=== PATIENT | female | born 1940 | race Caucasian/White ===

== ENCOUNTER 2020-10-15 06:09 | Inpatient (IN) | payer MEDICARE, OTHER ==
[~2020-10-15] VITALS: Ht 165.1 cm; Wt 70.4 kg
[2020-10-15] MEDS ORDERED: SODIUM CHLORIDE 0.9% 1,000ML IV SCH (06:30)
[2020-10-15] MEDS ORDERED: ONDANSETRON 2MG/ML, 2ML IV PRN ×2 (06:30→10:00)
[2020-10-15] MEDS ORDERED: CHOL10003 PO (06:39)
[2020-10-15] MEDS ORDERED: PENT100C2 PO (06:39)
[2020-10-15] MEDS ORDERED: MULT-482 PO (06:39)
[2020-10-15] MEDS ORDERED: ATOR10TA9 PO (06:39)
[2020-10-15] MEDS ORDERED: LEVO88TA2 PO (06:39)
[2020-10-15] MEDS ORDERED: Tumeric PO (06:39)
[2020-10-15] MEDS ORDERED: [UNRECOGNIZED DRUG - OTHER] PO (06:39)
[2020-10-15 06:41] VITALS: BP 158/85
[2020-10-15] MEDS ORDERED: FENTANYL PF 250 MCG/5ML ONE (07:20)
[2020-10-15] MEDS ORDERED: PROTAMINE SULFATE 10 MG/ML, 5ML ONE (07:23)
[2020-10-15] MEDS ORDERED: HEPARIN 1,000 UNITS/ML, 10ML ONE (07:24)
[2020-10-15 07:53] LABS: BASOPHILS % (AUTO) 1 % (0-1); EOSINOPHILS % (AUTO) 5 % (1-7); LYMPHOCYTES % (AUTO) 29 % (22-44); MEAN CORPUSCULAR HEMOGLOBIN 29.3 pg (27.0-34.8); MEAN CORPUSCULAR HGB CONC 33.9 g/dL (32.4-35.8); MONOCYTES % (AUTO) 10 % (2-9); NEUTROPHILS % (AUTO) 55 % (42-75); PLATELET COUNT 229 x10^3/uL (130-400); RED BLOOD COUNT 5.29 x10^6/uL (3.82-5.3); RED CELL DISTRIBUTION WIDTH 15.1 % (9.6-15.2)
[2020-10-15 07:58] LABS: INTERNATIONAL NORMALIZED RATIO 1.03 (0.93-1.1)
[2020-10-15 08:01] LABS: ANION GAP 8 mmol/L (5-15); CALCIUM 9.2 mg/dL (8.5-10.1); CHLORIDE 109 mmol/L (98-107); CREATININE 0.89 mg/dL (0.55-1.02)
[2020-10-15] MEDS ORDERED: MAALOX/HYOSCYAMINE/LIDOCAINE 45 ML BTL PO PRN (10:00)
[2020-10-15] MEDS ORDERED: HYDROcodone/APAP 5/325 TABLET PO PRN (10:00)
[2020-10-15] MEDS ORDERED: hydrALAzine 20 MG/ML, 1ML IVPush PRN (10:00)
[2020-10-15] MEDS ORDERED: LABETALOL 5MG/ML, 20ML IVPush PRN (10:00)
[2020-10-15] MEDS ORDERED: ACETAMINOPHEN 325 MG TABLET PO PRN (10:00)
[2020-10-15 11:50] VITALS: BP 121/85
[2020-10-15 12:40] VITALS: BP 105/66
[2020-10-15] MEDS: SODIUM CHLORIDE 0.9% 1,000 ML IV SCH ×2 (12:47→22:30)
[2020-10-15 20:30] VITALS: BP 125/77
[2020-10-15] MEDS ORDERED: ATORVASTATIN 10 MG TABLET PO SCH (21:00)
[2020-10-15] MEDS ORDERED: CLOPIDOGREL 300 MG TABLET PO ONE (21:00)
[2020-10-16 01:35] VITALS: BP 108/57
[2020-10-16 05:10] LABS: BASOPHILS % (AUTO) 1 % (0-1); EOSINOPHILS % (AUTO) 1 % (1-7); LYMPHOCYTES % (AUTO) 18 % (22-44); MEAN CORPUSCULAR HEMOGLOBIN 29.6 pg (27.0-34.8); MEAN PLATELET VOLUME 8.7 fL (7.4-10.4); MONOCYTES % (AUTO) 11 % (2-9); NEUTROPHILS % (AUTO) 70 % (42-75); PLATELET COUNT 175 x10^3/uL (130-400); RED BLOOD COUNT 4.22 x10^6/uL (3.82-5.3)
[2020-10-16 05:21] LABS: ANION GAP 7 mmol/L (5-15); CALCIUM 8.1 mg/dL (8.5-10.1); CHLORIDE 111 mmol/L (98-107)
[2020-10-16 05:22] LABS: CREATININE 0.85 mg/dL (0.55-1.02)
[2020-10-16] MEDS ORDERED: ASPIRIN 81 MG TABLET EC PO SCH (06:00)
[2020-10-16] MEDS ORDERED: LEVOTHYROXINE 88 MCG TABLET PO SCH (06:00)
[2020-10-16] MEDS: SODIUM CHLORIDE 0.9% 1,000 ML IV SCH (08:30)
[2020-10-16 09:00] VITALS: BP 145/71
[2020-10-16] MEDS ORDERED: CLOPIDOGREL 75 MG TABLET PO SCH (09:00)
[2020-10-16] MEDS ORDERED: CLOP75TA PO (13:29)
[2020-10-16] MEDS ORDERED: ASPI81TA45 PO (13:29)
[2020-10-16 14:52] VITALS: BP 135/89
== END 2020-10-16 15:20 | disposition home or self-care (01) | DRG 266 ==
LOC: ORIP 06:09 → EDSTATUS 07:30 → 5SO 11:32 → DCLOUNGE 10-16 15:05
PROVIDERS: ADMIT Internal Medicine Cardiovascular Disease; ATTEND Internal Medicine Cardiovascular Disease
PROC: B24BZZ4 Ultrasonography of Heart with Aorta, Transesophageal (ICD-10-PCS; 2020-10-15)
PROC: 02UG3JZ Supplement Mitral Valve with Synthetic Substitute, Percutaneous Approach (ICD-10-PCS; principal; 2020-10-15 07:30)
DX: I34.0 Nonrheumatic mitral (valve) insufficiency (principal); Z00.6 Encounter for examination for normal comparison and control in clinical research program; I50.43 Acute on chronic combined systolic (congestive) and diastolic (congestive) heart failure; Z20.822 Contact with and (suspected) exposure to COVID-19; E03.9 Hypothyroidism, unspecified
CPT/HCPCS: 33019; 33418; 36415; 80048; 83880; 85025; 85347; 85610; 86850; 86900; 87635; 93005; 93306; 93312; 93321; 93325; 93355; C1760; C1894; G0378; J1644; J2720; J3010

== ENCOUNTER 2020-10-31 10:02 | Emergency (ER) | payer MEDICARE, OTHER ==
[~2020-10-31] VITALS: Ht 162.6 cm; Wt 66.0 kg
[~2020-10-31 10:02] MED LIST: ASPI81TA45 PO; ATOR10TA9 PO; CHOL10003 PO; CLOP75TA PO; LEVO88TA2 PO; MULT-482 PO; PENT100C2 PO; Tumeric PO; [UNRECOGNIZED DRUG - OTHER] PO
[2020-10-31 10:22] VITALS: BP 172/74
--- NOTE | 2020-10-31 12:46 | NUR ---
Patient/Caregiver given discharge instructions and they have confirmed that they understand the instructions. Patient ambulatory with steady gait. NAD, all questions answered appropriately, denies additional needs at this time. No personal belongings left in room after discharge.
== END 2020-10-31 12:47 | disposition home or self-care (01) ==
LOC: ED 12:30
DX: R04.0 Epistaxis (principal); R42 Dizziness and giddiness
CPT/HCPCS: 99281; 99282

== ENCOUNTER → 2020-11-14 | Outpatient (CLI) | payer MEDICARE, OTHER | END | disposition home or self-care (01) | LOC: CVU 12:52 | PROVIDERS: ATTEND Internal Medicine Cardiovascular Disease | DX: Z01.810 Encounter for preprocedural cardiovascular examination (principal); I08.0 Rheumatic disorders of both mitral and aortic valves; I65.29 Occlusion and stenosis of unspecified carotid artery | CPT/HCPCS: 93306 ==